=== PATIENT | male | born 1975 | race Caucasian/White ===

== ENCOUNTER 2020-06-19 19:54 | Observation (INO) ==
[2020-06-19 20:35] LABS: Basophils # 0.1 K/mcL (0.0-0.2); Basophils % 0.6 %; Eosinophils # 0.2 K/mcL (0.0-0.6); Eosinophils % 2.6 %; Hematocrit 42.5 % (37.5-50.1); Hemoglobin 13.6 g/dL (12.9-16.9); Immature Granulocytes % 0.5 % (0-4); Lymphocytes % 13.2 %; Mean Corpuscular Hemoglobin 29.6 pg (28.0-33.3); Mean Corpuscular Volume 92.4 fL (83.0-100.0); Monocytes # 0.7 K/mcL (0.0-1.3); Monocytes % 8.8 %; Neutrophils # 5.7 K/mcL (1.6-8.9); Platelet Count 235 K/mcL (140-400); Red Cell Distribution Width 12.8 % (11.5-14.5); Segmented Neutrophils % 74.3 %; White Blood Count 7.7 K/mcL (4.3-11.1)
[2020-06-19 20:41] LABS: Bilirubin,Urine Negative (Negative); Blood,Urine Negative (Negative); Clarity,Urine Clear (Clear); Color,Urine Colorless (Yellow); Glucose,Urine (UA) Normal (Normal); Ketones,Urine Negative (Negative); Leukocyte Esterase,Urine Negative (Negative); Nitrite,Urine Negative (Negative); PH,Urine 7.5 pH Units (5.0-8.0); Protein,Urine Negative (Neg-Trace); Specific Gravity,Urine 1.008 (1.010-1.025); Urobilinogen,Urine Normal (Normal)
[2020-06-19 21:00] LABS: BUN/Creatinine Ratio 12 (6-26); Blood Urea Nitrogen 9 mg/dL (6-20); Calcium 13.4 mg/dL (8.6-10.3); Carbon Dioxide 32 mEq/L (23-29); Chloride 101 mEq/L (98-107); Glucose 120 mg/dL (70-105); Osmolality,Calculated 282 (280-300); Potassium 3.9 mEq/L (3.5-5.1); Sodium 136 mEq/L (136-145); eGFR For African Americans > 60 (> 60); eGFR For Non-African Americans > 60 (> 60)
[2020-06-19] MEDS ORDERED: 0.9 % Sodium Chloride 1,000 ML IVC ONE ×2 (21:07→23:36)
[2020-06-19] MEDS ORDERED: Ketorolac 15 MG/ML VIAL IVP ONE (21:08)
[2020-06-19] MEDS ORDERED: Isovue-370 500 ML BOTTLE IVP ONE (21:35)
[2020-06-19 21:57] LABS: VBG Ionized Calcium 1.78 mmol/L (1.15-1.35)
[2020-06-19] MEDS ORDERED: Ondansetron 4 MG/2 ML VIAL IVP ONE (22:03)
[2020-06-19] MEDS ORDERED: Pantoprazole 40 MG VIAL IVP ONE (22:32)
[2020-06-20 00:16] LABS: Magnesium 1.7 mg/dL (1.6-2.6)
[2020-06-20] MEDS ORDERED: Acetaminophen 325 MG TABLET PO PRN (00:52)
[2020-06-20] MEDS ORDERED: Naloxone 0.4 MG/ML INJ IVP PRN (00:52)
[2020-06-20] MEDS: 0.9 % Sodium Chloride 1,000 ML IVC SCH ×3 (01:08→16:43)
[2020-06-20] MEDS: Ketorolac 30 MG/ML VIAL IVP PRN ×2 (02:15→08:16)
[2020-06-20] MEDS: *HR* Promethazine 25 MG/ML VIAL IVP PRN ×4 (02:17→21:42)
[2020-06-20 03:11] LABS: Basophils % 0.6 %; Eosinophils # 0.2 K/mcL (0.0-0.6); Eosinophils % 3.6 %; Immature Granulocytes % 0.5 % (0-4); Lymphocytes # 1.6 K/mcL (0.6-4.6); Lymphocytes % 23.9 %; Mean Corpuscular HGB Conc 31.7 g/dL (31.6-35.5); Mean Corpuscular Hemoglobin 29.1 pg (28.0-33.3); Mean Corpuscular Volume 91.9 fL (83.0-100.0); Mean Platelet Volume 9.4 fL (9.4-12.4); Monocytes # 0.8 K/mcL (0.0-1.3); Monocytes % 12.3 %; Neutrophils # 3.9 K/mcL (1.6-8.9); Platelet Count 226 K/mcL (140-400); Red Blood Count 4.46 M/mcL (4.19-5.50); Red Cell Distribution Width 12.7 % (11.5-14.5); Segmented Neutrophils % 59.1 %; White Blood Count 6.7 K/mcL (4.3-11.1)
[2020-06-20 03:18] LABS: INR 1.1; Prothrombin Time 12.4 Seconds (9.4-12.1)
[2020-06-20 03:54] LABS: Alanine Aminotransferase 24 Units/L (7-52); Albumin 3.3 g/dL (3.5-5.7); Albumin/Globulin Ratio 1.2 (1.1-2.2); Alkaline Phosphatase 70 Units/L (34-104); Aspartate Amino Transferase 20 Units/L (13-39); BUN/Creatinine Ratio 13 (6-26); Bilirubin,Total 0.2 mg/dL (0.3-1.0); Blood Urea Nitrogen 9 mg/dL (6-20); Calcium 12.4 mg/dL (8.6-10.3); Carbon Dioxide 27 mEq/L (23-29); Chloride 107 mEq/L (98-107); Chol/HDL Ratio 7.1 (0-4.9); Cholesterol 192 mg/dL (< 200); Globulin 2.7 g/dL (2.4-3.5); Glucose 98 mg/dL (70-105); HDL Cholesterol 27 mg/dL (40-59); LDL Cholesterol,Calculated 134 mg/dL (< 100); Magnesium 1.8 mg/dL (1.6-2.6); Osmolality,Calculated 285 (280-300); Phosphorous 2.7 mg/dL (2.7-4.5); Potassium 3.9 mEq/L (3.5-5.1); Sodium 138 mEq/L (136-145); Triglycerides 154 mg/dL (< 150); eGFR For African Americans > 60 (> 60); eGFR For Non-African Americans > 60 (> 60)
[2020-06-20] MEDS ORDERED: Ketorolac 30 MG/ML VIAL IVP SCH (06:00)
[2020-06-20] MEDS: Loratadine 10 MG TABLET PO SCH (08:14)
[2020-06-20] MEDS ORDERED: Ketorolac 30 MG/ML VIAL IVP PRN (10:32)
[2020-06-20] MEDS: methocarbamoL 750 MG TABLET PO SCH ×3 (11:21→20:50)
[2020-06-20] MEDS: *HR* HYDROcodone/Acet 5/325 mg TABLET PO PRN ×2 (11:26→20:54)
[2020-06-20 13:40] LABS: Bacteria,Urine Few per hpf (None-Few); Bilirubin,Urine Negative (Negative); Blood,Urine Negative (Negative); Clarity,Urine Clear (Clear); Color,Urine Light-Yellow (Yellow); Glucose,Urine (UA) Normal (Normal); Ketones,Urine Negative (Negative); Leukocyte Esterase,Urine Trace (Negative); Mucus,Urine Few per lpf (None-Few); Nitrite,Urine Negative (Negative); PH,Urine 6.5 pH Units (5.0-8.0); Protein,Urine Negative (Neg-Trace); RBC,Urine 0-3 per hpf (0-3); Specific Gravity,Urine 1.015 (1.010-1.025); Urobilinogen,Urine Normal (Normal)
[2020-06-21] MEDS: 0.9 % Sodium Chloride 1,000 ML IVC SCH ×2 (00:17→07:24)
[2020-06-21] MEDS ORDERED: Melatonin 3 MG TABLET PO ONE (00:52)
[2020-06-21 01:21] LABS: Hematocrit 35.5 % (37.5-50.1); Hemoglobin 11.2 g/dL (12.9-16.9); Mean Corpuscular HGB Conc 31.5 g/dL (31.6-35.5); Mean Corpuscular Volume 95.2 fL (83.0-100.0); Mean Platelet Volume 9.4 fL (9.4-12.4); Platelet Count 177 K/mcL (140-400); Red Blood Count 3.73 M/mcL (4.19-5.50); Red Cell Distribution Width 12.6 % (11.5-14.5); White Blood Count 4.3 K/mcL (4.3-11.1)
[2020-06-21 01:41] LABS: Alanine Aminotransferase 20 Units/L (7-52); Albumin 2.8 g/dL (3.5-5.7); Albumin/Globulin Ratio 1.2 (1.1-2.2); Alkaline Phosphatase 73 Units/L (34-104); Aspartate Amino Transferase 16 Units/L (13-39); BUN/Creatinine Ratio 12 (6-26); Bilirubin,Total 0.2 mg/dL (0.3-1.0); Blood Urea Nitrogen 9 mg/dL (6-20); Calcium 10.7 mg/dL (8.6-10.3); Carbon Dioxide 26 mEq/L (23-29); Chloride 110 mEq/L (98-107); Globulin 2.3 g/dL (2.4-3.5); Glucose 122 mg/dL (70-105); Osmolality,Calculated 290 (280-300); Potassium 3.8 mEq/L (3.5-5.1); Sodium 140 mEq/L (136-145); Total Protein 5.1 g/dL (6.4-8.9); eGFR For African Americans > 60 (> 60); eGFR For Non-African Americans > 60 (> 60)
[2020-06-21 06:50] VITALS: BP 101/61
[2020-06-21] MEDS: methocarbamoL 750 MG TABLET PO SCH (07:23)
[2020-06-21] MEDS: *HR* HYDROcodone/Acet 5/325 mg TABLET PO PRN (07:23)
[2020-06-21] MEDS: *HR* Promethazine 25 MG/ML VIAL IVP PRN (07:23)
[2020-06-21] MEDS: Loratadine 10 MG TABLET PO SCH (07:23)
[2020-06-21] MEDS ORDERED: Pamidronate 30 MG in 0.9 % Sodium Chloride 500 ML IVPB ONE (08:58)
[2020-06-24 20:32] LABS: Alpha 2 Globulin (PEP) 0.61 g/dL (0.48-1.05); Beta Globulin (PEP) 0.68 g/dL (0.48-1.10)
[2020-06-25 11:41] LABS: IFE Reflexed NOT DONE
== END 2020-06-21 13:36 | disposition home or self-care (01) ==
LOC: 2ANU 19:54 → EMEROOARM 19:54 → SUATTDRO 06-20 00:16 → 2ANU 06-20 00:50
PROVIDERS: ADMIT Student in an Organized Health Care Education/Training Program; ATTEND Internal Medicine

== ENCOUNTER 2020-07-02 15:41 | Inpatient (IN) ==
[2020-07-02] MEDS ORDERED: 0.9 % Sodium Chloride 1,000 ML IVC ONE (16:27)
[2020-07-02 16:40] LABS: Bilirubin,Urine Negative (Negative); Blood,Urine Negative (Negative); Clarity,Urine Clear (Clear); Color,Urine Colorless (Yellow); Glucose,Urine (UA) Normal (Normal); Ketones,Urine Negative (Negative); Leukocyte Esterase,Urine Negative (Negative); Nitrite,Urine Negative (Negative); Protein,Urine Negative (Neg-Trace); Specific Gravity,Urine 1.005 (1.010-1.025); Urobilinogen,Urine Normal (Normal)
[2020-07-02 16:49] LABS: Basophils # 0.1 K/mcL (0.0-0.2); Basophils % 0.8 %; Eosinophils # 0.2 K/mcL (0.0-0.6); Eosinophils % 2.6 %; Hemoglobin 14.7 g/dL (12.9-16.9); Immature Granulocytes % 0.5 % (0-4); Lymphocytes # 1.9 K/mcL (0.6-4.6); Lymphocytes % 23.9 %; Mean Corpuscular Hemoglobin 29.1 pg (28.0-33.3); Mean Corpuscular Volume 90.9 fL (83.0-100.0); Mean Platelet Volume 9.3 fL (9.4-12.4); Monocytes # 0.8 K/mcL (0.0-1.3); Monocytes % 10.3 %; Neutrophils # 4.8 K/mcL (1.6-8.9); Platelet Count 313 K/mcL (140-400); Red Blood Count 5.06 M/mcL (4.19-5.50); Red Cell Distribution Width 12.9 % (11.5-14.5); Segmented Neutrophils % 61.9 %; White Blood Count 7.8 K/mcL (4.3-11.1)
[2020-07-02 16:55] LABS: INR 1.1; Prothrombin Time 12.3 Seconds (9.4-12.1)
[2020-07-02] MEDS ORDERED: *HR* HYDROmorphone (PF) 1 MG/ML SYRINGE IVP ONE ×2 (17:19→22:22)
[2020-07-02] MEDS ORDERED: Ondansetron 4 MG/2 ML VIAL IVP ONE (17:20)
[2020-07-02 17:24] LABS: Alanine Aminotransferase 20 Units/L (7-52); Albumin 4.3 g/dL (3.5-5.7); Albumin/Globulin Ratio 1.2 (1.1-2.2); Alkaline Phosphatase 115 Units/L (34-104); Aspartate Amino Transferase 23 Units/L (13-39); BUN/Creatinine Ratio 15 (6-26); Bilirubin,Total 0.5 mg/dL (0.3-1.0); Blood Urea Nitrogen 11 mg/dL (6-20); Calcium 13.4 mg/dL (8.6-10.3); Carbon Dioxide 27 mEq/L (23-29); Chloride 103 mEq/L (98-107); Globulin 3.7 g/dL (2.4-3.5); Glucose 89 mg/dL (70-105); Osmolality,Calculated 277 (280-300); Potassium 4.3 mEq/L (3.5-5.1); Sodium 134 mEq/L (136-145); eGFR For African Americans > 60 (> 60); eGFR For Non-African Americans > 60 (> 60)
[2020-07-02] MEDS ORDERED: Naloxone 0.4 MG/ML INJ IVP PRN (18:14)
[2020-07-02] MEDS ORDERED: MOM Conc 10 ML UD.LIQ PO PRN (18:14)
[2020-07-02] MEDS: Pantoprazole 40 MG VIAL IVP SCH (18:52)
[2020-07-02] MEDS: 0.9 % Sodium Chloride 1,000 ML IVC SCH (18:52)
[2020-07-02] MEDS ORDERED: Ketorolac 15 MG/ML VIAL IVP ONE (20:57)
[2020-07-02 21:22] LABS: Hematocrit 45.4 % (37.5-50.1)
[2020-07-03] MEDS: 0.9 % Sodium Chloride 1,000 ML IVC SCH ×4 (02:56→23:37)
[2020-07-03] MEDS ORDERED: Ketorolac 15 MG/ML VIAL IVP ONE (04:57)
[2020-07-03 05:03] LABS: Basophils % 0.6 %; Eosinophils # 0.2 K/mcL (0.0-0.6); Eosinophils % 3.6 %; Hematocrit 40.4 % (37.5-50.1); Hemoglobin 12.7 g/dL (12.9-16.9); Immature Granulocytes % 0.5 % (0-4); Lymphocytes # 1.2 K/mcL (0.6-4.6); Lymphocytes % 18.3 %; Mean Corpuscular HGB Conc 31.4 g/dL (31.6-35.5); Mean Corpuscular Hemoglobin 29.1 pg (28.0-33.3); Mean Corpuscular Volume 92.7 fL (83.0-100.0); Monocytes # 0.7 K/mcL (0.0-1.3); Monocytes % 10.5 %; Neutrophils # 4.3 K/mcL (1.6-8.9); Platelet Count 203 K/mcL (140-400); Red Blood Count 4.36 M/mcL (4.19-5.50); Red Cell Distribution Width 12.8 % (11.5-14.5); Segmented Neutrophils % 66.5 %; White Blood Count 6.4 K/mcL (4.3-11.1)
[2020-07-03] MEDS: Pantoprazole 40 MG VIAL IVP SCH ×2 (05:10→17:48)
[2020-07-03 05:19] LABS: BUN/Creatinine Ratio 19 (6-26); Blood Urea Nitrogen 12 mg/dL (6-20); Calcium 10.7 mg/dL (8.6-10.3); Carbon Dioxide 24 mEq/L (23-29); Chloride 109 mEq/L (98-107); Glucose 87 mg/dL (70-105); Magnesium 1.7 mg/dL (1.6-2.6); Osmolality,Calculated 283 (280-300); Sodium 137 mEq/L (136-145); eGFR For African Americans > 60 (> 60); eGFR For Non-African Americans > 60 (> 60)
[2020-07-03] MEDS ORDERED: methocarbamoL 750 MG TABLET PO PRN ×2 (07:33→15:55)
[2020-07-03] MEDS ORDERED: polyethylene glycoL 3350 17 GM POWD.PACK PO SCH (09:00)
[2020-07-03] MEDS ORDERED: Lidocaine -MPF 2% 2 ML VIAL ONE (13:14)
[2020-07-03] MEDS ORDERED: *HR* Propofol 200 MG/20 ML VIAL IVP ONE (13:15)
[2020-07-03] MEDS ORDERED: *HR* FentaNYL (PF) 100 MCG/2 ML VIAL ONE (13:17)
[2020-07-03] MEDS ORDERED: Ondansetron 4 MG/2 ML VIAL ONE (13:18)
[2020-07-03] MEDS ORDERED: *HR* HYDROmorphone PF 0.5 MG/0.5 ML SYRINGE IVP PRN (14:13)
[2020-07-03] MEDS ORDERED: *HR* OxyCODONE Immed Rel 5 MG TABLET PO PRN (14:13)
[2020-07-03] MEDS ORDERED: Ondansetron 4 MG/2 ML VIAL IVP ONE (14:13)
[2020-07-03] MEDS ORDERED: Isovue-300 50ML VIAL ONE (14:26)
[2020-07-03] MEDS ORDERED: Dexamethasone 4 MG/ML VIAL ONE (14:39)
[2020-07-03] MEDS ORDERED: Ketorolac 30 MG/ML VIAL ONE (14:59)
[2020-07-03] MEDS ORDERED: MOM Conc 10 ML UD.LIQ PO PRN (15:55)
[2020-07-03] MEDS ORDERED: Naloxone 0.4 MG/ML INJ IVP PRN (15:55)
[2020-07-03] MEDS: Ketorolac 30 MG/ML VIAL IVP PRN ×2 (17:30→23:38)
[2020-07-03 17:54] LABS: Prolactin 12.03 ng/mL (3.00-14.70)
[2020-07-03] MEDS: rOPINIRole 1 MG TABLET PO SCH (19:41)
[2020-07-03] MEDS ORDERED: rOPINIRole 1 MG TABLET PO SCH (21:00)
[2020-07-04 04:30] LABS: Basophils % 0.3 %; Eosinophils % 0.6 %; Hematocrit 35.3 % (37.5-50.1); Hemoglobin 11.3 g/dL (12.9-16.9); Immature Granulocytes % 0.5 % (0-4); Lymphocytes # 0.9 K/mcL (0.6-4.6); Lymphocytes % 13.8 %; Mean Corpuscular Volume 93.6 fL (83.0-100.0); Mean Platelet Volume 9.3 fL (9.4-12.4); Monocytes # 0.7 K/mcL (0.0-1.3); Monocytes % 10.2 %; Platelet Count 198 K/mcL (140-400); Red Blood Count 3.77 M/mcL (4.19-5.50); Red Cell Distribution Width 12.4 % (11.5-14.5); Segmented Neutrophils % 74.6 %; White Blood Count 6.7 K/mcL (4.3-11.1)
[2020-07-04 04:47] LABS: BUN/Creatinine Ratio 16 (6-26); Blood Urea Nitrogen 12 mg/dL (6-20); Calcium 10.1 mg/dL (8.6-10.3); Carbon Dioxide 25 mEq/L (23-29); Chloride 110 mEq/L (98-107); Glucose 151 mg/dL (70-105); Osmolality,Calculated 289 (280-300); Sodium 138 mEq/L (136-145); eGFR For African Americans > 60 (> 60); eGFR For Non-African Americans > 60 (> 60)
[2020-07-04] MEDS: Ketorolac 30 MG/ML VIAL IVP PRN ×2 (05:43→11:59)
[2020-07-04] MEDS: Pantoprazole 40 MG VIAL IVP SCH ×2 (05:44→17:29)
[2020-07-04] MEDS: polyethylene glycoL 3350 17 GM POWD.PACK PO SCH (08:02)
[2020-07-04] MEDS: 0.9 % Sodium Chloride 1,000 ML IVC SCH ×2 (08:34→17:29)
[2020-07-04] MEDS: Sennosides/Docusate Sodium TABLET PO SCH ×2 (10:40→20:40)
[2020-07-04] MEDS: Acetaminophen 325 MG TABLET PO PRN ×2 (15:55→20:39)
[2020-07-04] MEDS: rOPINIRole 1 MG TABLET PO SCH (20:39)
[2020-07-04 22:44] LABS: Prothrombin Time 11.9 Seconds (9.4-12.1)
[2020-07-05] MEDS: 0.9 % Sodium Chloride 1,000 ML IVC SCH ×3 (02:04→20:31)
[2020-07-05 05:06] LABS: Basophils % 0.5 %; Eosinophils # 0.1 K/mcL (0.0-0.6); Eosinophils % 2.6 %; Hematocrit 36.5 % (37.5-50.1); Hemoglobin 11.9 g/dL (12.9-16.9); Immature Granulocytes % 0.2 % (0-4); Lymphocytes # 1.7 K/mcL (0.6-4.6); Lymphocytes % 31.1 %; Mean Corpuscular HGB Conc 32.6 g/dL (31.6-35.5); Mean Corpuscular Hemoglobin 30.7 pg (28.0-33.3); Mean Corpuscular Volume 94.1 fL (83.0-100.0); Mean Platelet Volume 10.1 fL (9.4-12.4); Monocytes # 0.6 K/mcL (0.0-1.3); Monocytes % 10.6 %; Platelet Count 180 K/mcL (140-400); Red Blood Count 3.88 M/mcL (4.19-5.50); Red Cell Distribution Width 12.7 % (11.5-14.5); White Blood Count 5.5 K/mcL (4.3-11.1)
[2020-07-05] MEDS: Pantoprazole 40 MG VIAL IVP SCH (05:11)
[2020-07-05 05:16] LABS: BUN/Creatinine Ratio 13 (6-26); Blood Urea Nitrogen 10 mg/dL (6-20); Calcium 11.1 mg/dL (8.6-10.3); Carbon Dioxide 30 mEq/L (23-29); Chloride 105 mEq/L (98-107); Glucose 105 mg/dL (70-105); Magnesium 1.5 mg/dL (1.6-2.6); Osmolality,Calculated 287 (280-300); Potassium 3.8 mEq/L (3.5-5.1); Sodium 139 mEq/L (136-145); eGFR For African Americans > 60 (> 60); eGFR For Non-African Americans > 60 (> 60)
[2020-07-05] MEDS: Sennosides/Docusate Sodium TABLET PO SCH ×2 (08:58→20:27)
[2020-07-05] MEDS: polyethylene glycoL 3350 17 GM POWD.PACK PO SCH (08:59)
[2020-07-05] MEDS: Acetaminophen 325 MG TABLET PO PRN (17:33)
[2020-07-05 20:18] LABS: Kappa Qnt Free Light Chains 30.92 mg/L (3.30-19.40); Lambda Qnt Free Light Chains 34.83 mg/L (5.71-26.30)
[2020-07-05] MEDS: rOPINIRole 1 MG TABLET PO SCH (20:27)
[2020-07-06] MEDS: Acetaminophen 325 MG TABLET PO PRN ×2 (00:06→17:40)
[2020-07-06 04:37] LABS: Basophils % 0.9 %; Eosinophils # 0.2 K/mcL (0.0-0.6); Eosinophils % 3.8 %; Hematocrit 37.9 % (37.5-50.1); Hemoglobin 12.1 g/dL (12.9-16.9); Immature Granulocytes % 0.7 % (0-4); Lymphocytes # 1.2 K/mcL (0.6-4.6); Lymphocytes % 28.5 %; Mean Corpuscular HGB Conc 31.9 g/dL (31.6-35.5); Mean Corpuscular Hemoglobin 29.3 pg (28.0-33.3); Mean Corpuscular Volume 91.8 fL (83.0-100.0); Mean Platelet Volume 9.7 fL (9.4-12.4); Monocytes # 0.5 K/mcL (0.0-1.3); Monocytes % 12.7 %; Neutrophils # 2.3 K/mcL (1.6-8.9); Platelet Count 202 K/mcL (140-400); Red Blood Count 4.13 M/mcL (4.19-5.50); Red Cell Distribution Width 12.7 % (11.5-14.5); Segmented Neutrophils % 53.4 %; White Blood Count 4.2 K/mcL (4.3-11.1)
[2020-07-06] MEDS: 0.9 % Sodium Chloride 1,000 ML IVC SCH ×3 (04:41→20:11)
[2020-07-06 04:52] LABS: BUN/Creatinine Ratio 15 (6-26); Blood Urea Nitrogen 12 mg/dL (6-20); Calcium 11.4 mg/dL (8.6-10.3); Carbon Dioxide 30 mEq/L (23-29); Chloride 103 mEq/L (98-107); Glucose 109 mg/dL (70-105); Osmolality,Calculated 286 (280-300); Potassium 3.7 mEq/L (3.5-5.1); Sodium 138 mEq/L (136-145); eGFR For African Americans > 60 (> 60); eGFR For Non-African Americans > 60 (> 60)
[2020-07-06] MEDS: polyethylene glycoL 3350 17 GM POWD.PACK PO SCH (08:48)
[2020-07-06] MEDS: Sennosides/Docusate Sodium TABLET PO SCH (08:48)
[2020-07-06] MEDS: rOPINIRole 1 MG TABLET PO SCH (20:59)
[2020-07-07] MEDS: 0.9 % Sodium Chloride 1,000 ML IVC SCH ×4 (03:34→21:00)
[2020-07-07] MEDS: Acetaminophen 325 MG TABLET PO PRN ×2 (04:48→10:55)
[2020-07-07] MEDS: polyethylene glycoL 3350 17 GM POWD.PACK PO SCH (08:53)
[2020-07-07 12:53] LABS: Basophils # 0.1 K/mcL (0.0-0.2); Basophils % 1.1 %; Eosinophils # 0.3 K/mcL (0.0-0.6); Eosinophils % 5.7 %; Hematocrit 38.8 % (37.5-50.1); Hemoglobin 12.6 g/dL (12.9-16.9); Immature Granulocytes % 1.4 % (0-4); Lymphocytes # 1.3 K/mcL (0.6-4.6); Lymphocytes % 29.4 %; Mean Corpuscular HGB Conc 32.5 g/dL (31.6-35.5); Mean Corpuscular Hemoglobin 30.5 pg (28.0-33.3); Mean Corpuscular Volume 93.9 fL (83.0-100.0); Mean Platelet Volume 9.9 fL (9.4-12.4); Monocytes # 0.5 K/mcL (0.0-1.3); Monocytes % 12.2 %; Neutrophils # 2.2 K/mcL (1.6-8.9); Platelet Count 204 K/mcL (140-400); Red Blood Count 4.13 M/mcL (4.19-5.50); Red Cell Distribution Width 12.7 % (11.5-14.5); Segmented Neutrophils % 50.2 %; White Blood Count 4.4 K/mcL (4.3-11.1)
[2020-07-07 13:03] LABS: BUN/Creatinine Ratio 13 (6-26); Blood Urea Nitrogen 10 mg/dL (6-20); Calcium 11.8 mg/dL (8.6-10.3); Carbon Dioxide 29 mEq/L (23-29); Chloride 105 mEq/L (98-107); Glucose 114 mg/dL (70-105); Magnesium 1.6 mg/dL (1.6-2.6); Osmolality,Calculated 286 (280-300); Potassium 3.5 mEq/L (3.5-5.1); Sodium 138 mEq/L (136-145); eGFR For African Americans > 60 (> 60); eGFR For Non-African Americans > 60 (> 60)
[2020-07-07 17:22] LABS: Metanephrine, Plasma 0.24 nmol/L (0.00-0.49)
[2020-07-07] MEDS: rOPINIRole 1 MG TABLET PO SCH (20:59)
[2020-07-08] MEDS: 0.9 % Sodium Chloride 1,000 ML IVC SCH (05:11)
[2020-07-08 06:58] VITALS: BP 102/64
[2020-07-08] MEDS: polyethylene glycoL 3350 17 GM POWD.PACK PO SCH (08:40)
[2020-07-08 10:13] LABS: Thyroid Stimulating Hormone 0.905 mcIU/mL (0.340-5.600)
[2020-07-08 10:14] LABS: Triiodothyronine (T3) Free 3.57 pg/mL (2.50-3.90)
== END 2020-07-08 11:15 | disposition home or self-care (01) | DRG 446 ==
LOC: EMEROOARM 15:41 → 3BNU 15:41 → SUATTDRO 17:59 → 3BNU 18:24 → 3ANU 07-06 18:36
PROVIDERS: ADMIT Internal Medicine; ATTEND Pharmacist

== ENCOUNTER 2020-07-30 10:07 | Observation (INO) ==
[2020-07-30] MEDS ORDERED: 0.9 % Sodium Chloride 1,000 ML IVC ONE (10:35)
[2020-07-30] MEDS ORDERED: Isovue-370 500 ML BOTTLE IVP ONE (10:36)
[2020-07-30] MEDS ORDERED: Ondansetron 4 MG/2 ML VIAL IVP ONE (10:36)
[2020-07-30] MEDS ORDERED: *HR* FentaNYL (PF) 100 MCG/2 ML VIAL IVP ONE (10:38)
[2020-07-30 10:39] LABS: Bilirubin,Urine Moderate (Negative); Blood,Urine Negative (Negative); Clarity,Urine Clear (Clear); Color,Urine Dark-Orange (Yellow); Glucose,Urine (UA) Normal (Normal); Hyaline Casts,Urine Few per lpf (None Seen); Ketones,Urine Negative (Negative); Leukocyte Esterase,Urine Large (Negative); Mucus,Urine Few per lpf (None-Few); Nitrite,Urine Positive (Negative); PH,Urine 6.5 pH Units (5.0-8.0); Protein,Urine 30 mg/dL (Neg-Trace); Specific Gravity,Urine 1.023 (1.010-1.025); Squamous Epithelial Cell,Urine Few per hpf (None-Few); WBC,Urine 15-30 per hpf (0-3)
[2020-07-30 11:04] LABS: Basophils # 0.1 K/mcL (0.0-0.2); Basophils % 0.9 %; Eosinophils # 0.3 K/mcL (0.0-0.6); Eosinophils % 4.1 %; Hemoglobin 13.6 g/dL (12.9-16.9); Immature Granulocytes % 0.6 % (0-4); Lymphocytes # 1.5 K/mcL (0.6-4.6); Lymphocytes % 22.4 %; Mean Corpuscular HGB Conc 30.9 g/dL (31.6-35.5); Mean Corpuscular Hemoglobin 29.1 pg (28.0-33.3); Mean Platelet Volume 9.6 fL (9.4-12.4); Monocytes # 0.7 K/mcL (0.0-1.3); Monocytes % 10.2 %; Neutrophils # 4.1 K/mcL (1.6-8.9); Platelet Count 265 K/mcL (140-400); Red Blood Count 4.68 M/mcL (4.19-5.50); Red Cell Distribution Width 13.3 % (11.5-14.5); Segmented Neutrophils % 61.8 %; White Blood Count 6.6 K/mcL (4.3-11.1)
[2020-07-30 11:10] LABS: BUN/Creatinine Ratio 13 (6-26); Blood Urea Nitrogen 11 mg/dL (6-20); Calcium 13.8 mg/dL (8.6-10.3); Carbon Dioxide 29 mEq/L (23-29); Chloride 104 mEq/L (98-107); Glucose 101 mg/dL (70-105); Magnesium 1.8 mg/dL (1.6-2.6); Osmolality,Calculated 282 (280-300); Phosphorous 2.4 mg/dL (2.7-4.5); Potassium 4.3 mEq/L (3.5-5.1); Sodium 136 mEq/L (136-145); eGFR For African Americans > 60 (> 60); eGFR For Non-African Americans > 60 (> 60)
[2020-07-30] MEDS ORDERED: levoFLOXacin 500 MG/100 ML 500 MG/100 ML BAG IVPB ONE (11:55)
[2020-07-30] MEDS ORDERED: Naloxone 0.4 MG/ML INJ IVP PRN (12:17)
[2020-07-30 13:25] LABS: Alanine Aminotransferase 16 Units/L (7-52); Albumin 4.3 g/dL (3.5-5.7); Albumin/Globulin Ratio 1.3 (1.1-2.2); Alkaline Phosphatase 96 Units/L (34-104); Aspartate Amino Transferase 21 Units/L (13-39); Bilirubin,Indirect 0.3 mg/dL (0.0-1.0); Bilirubin,Total 0.3 mg/dL (0.3-1.0); Globulin 3.3 g/dL (2.4-3.5); Total Protein 7.6 g/dL (6.4-8.9)
[2020-07-30] MEDS ORDERED: Famotidine 20 MG TABLET PO PRN (14:08)
[2020-07-30] MEDS: 0.9 % Sodium Chloride 1,000 ML IVC SCH ×2 (15:29→22:26)
[2020-07-30] MEDS: *HR* Heparin 5,000 UNIT/ML VIAL SQ SCH (18:56)
[2020-07-30] MEDS: Acetaminophen 325 MG TABLET PO PRN (19:04)
[2020-07-30] MEDS: methocarbamoL 750 MG TABLET PO PRN (19:05)
[2020-07-30] MEDS ORDERED: QUEtiapine Fumarate 25 MG TABLET PO SCH (21:00)
[2020-07-30] MEDS ORDERED: rOPINIRole 1 MG TABLET PO SCH (21:00)
[2020-07-30 22:24] LABS: BUN/Creatinine Ratio 7 (6-26); Blood Urea Nitrogen 8 mg/dL (6-20); Calcium 11.6 mg/dL (8.6-10.3); Carbon Dioxide 26 mEq/L (23-29); Chloride 109 mEq/L (98-107); Glucose 135 mg/dL (70-105); Osmolality,Calculated 286 (280-300); Potassium 3.7 mEq/L (3.5-5.1); Sodium 138 mEq/L (136-145); eGFR For African Americans > 60 (> 60); eGFR For Non-African Americans > 60 (> 60)
[2020-07-31] MEDS: Ondansetron 4 MG/2 ML VIAL IVP PRN ×2 (03:56→11:09)
[2020-07-31 04:46] LABS: BUN/Creatinine Ratio 9 (6-26); Blood Urea Nitrogen 8 mg/dL (6-20); Calcium 11.6 mg/dL (8.6-10.3); Carbon Dioxide 28 mEq/L (23-29); Chloride 110 mEq/L (98-107); Glucose 118 mg/dL (70-105); Magnesium 1.5 mg/dL (1.6-2.6); Osmolality,Calculated 289 (280-300); Phosphorous 2.7 mg/dL (2.7-4.5); Potassium 3.8 mEq/L (3.5-5.1); Sodium 140 mEq/L (136-145); eGFR For African Americans > 60 (> 60); eGFR For Non-African Americans > 60 (> 60)
[2020-07-31] MEDS: 0.9 % Sodium Chloride 1,000 ML IVC SCH ×3 (05:07→19:55)
[2020-07-31] MEDS: *HR* Heparin 5,000 UNIT/ML VIAL SQ SCH ×2 (05:11→18:07)
[2020-07-31] MEDS: Acetaminophen 325 MG TABLET PO PRN (05:11)
[2020-07-31] MEDS: methocarbamoL 750 MG TABLET PO PRN ×2 (05:11→20:01)
[2020-07-31] MEDS: Loratadine 10 MG TABLET PO SCH (08:16)
[2020-07-31] MEDS: cefTRIAXone 1,000 MG in Water for inj. (sterile) 10 ML IVP SCH (08:17)
[2020-07-31] MEDS: polyethylene glycoL 3350 17 GM POWD.PACK PO SCH (12:45)
[2020-07-31] MEDS ORDERED: *HR* Promethazine 25 MG/ML VIAL IVP PRN (13:17)
[2020-07-31] MEDS: Ibuprofen 400 MG TABLET PO PRN (16:38)
[2020-07-31] MEDS: rOPINIRole 1 MG TABLET PO SCH (20:00)
[2020-07-31] MEDS: QUEtiapine Fumarate 25 MG TABLET PO SCH (20:02)
[2020-08-01] MEDS: Ibuprofen 400 MG TABLET PO PRN ×3 (01:35→21:58)
[2020-08-01 05:30] LABS: BUN/Creatinine Ratio 11 (6-26); Blood Urea Nitrogen 7 mg/dL (6-20); Calcium 11.8 mg/dL (8.6-10.3); Carbon Dioxide 30 mEq/L (23-29); Chloride 103 mEq/L (98-107); Glucose 165 mg/dL (70-105); Magnesium 1.7 mg/dL (1.6-2.6); Osmolality,Calculated 286 (280-300); Potassium 3.5 mEq/L (3.5-5.1); Sodium 137 mEq/L (136-145); eGFR For African Americans > 60 (> 60); eGFR For Non-African Americans > 60 (> 60)
[2020-08-01] MEDS: *HR* Heparin 5,000 UNIT/ML VIAL SQ SCH ×2 (06:20→18:00)
[2020-08-01] MEDS: 0.9 % Sodium Chloride 1,000 ML IVC SCH ×2 (07:47→15:24)
[2020-08-01] MEDS: Loratadine 10 MG TABLET PO SCH (09:44)
[2020-08-01] MEDS: polyethylene glycoL 3350 17 GM POWD.PACK PO SCH (09:45)
[2020-08-01] MEDS: cefTRIAXone 1,000 MG in Water for inj. (sterile) 10 ML IVP SCH (09:45)
[2020-08-01] MEDS ORDERED: Fluticasone Propionate Nasal 50 MCG/SPRAY BOTTLE NS SCH (13:15)
[2020-08-01] MEDS ORDERED: Fluticasone Propionate Nasal 50 MCG/SPRAY BOTTLE NS PRN (16:19)
[2020-08-01] MEDS ORDERED: NON-FORMULARY MEDICATION 1 EACH EACH (Ropinirole Hcl [Requip] 4 MG) PO SCH (21:00)
[2020-08-01] MEDS ORDERED: NON-FORMULARY MEDICATION 1 EACH EACH (Omeprazole 20 MG) PO SCH (21:00)
[2020-08-01] MEDS ORDERED: AMITRIPTYLINE HCL 100 MG PO SCH (21:00)
[2020-08-01] MEDS ORDERED: QUETIAPINE FUMARATE 50 MG PO SCH (21:00)
[2020-08-01] MEDS: rOPINIRole 1 MG TABLET PO SCH (21:58)
[2020-08-01] MEDS: QUEtiapine Fumarate 25 MG TABLET PO SCH (21:59)
[2020-08-02] MEDS: 0.9 % Sodium Chloride 1,000 ML IVC SCH ×5 (00:24→15:41)
[2020-08-02 03:55] LABS: BUN/Creatinine Ratio 12 (6-26); Blood Urea Nitrogen 8 mg/dL (6-20); Calcium 11.6 mg/dL (8.6-10.3); Carbon Dioxide 31 mEq/L (23-29); Chloride 104 mEq/L (98-107); Glucose 104 mg/dL (70-105); Magnesium 1.7 mg/dL (1.6-2.6); Osmolality,Calculated 285 (280-300); Potassium 3.7 mEq/L (3.5-5.1); Sodium 138 mEq/L (136-145); eGFR For African Americans > 60 (> 60); eGFR For Non-African Americans > 60 (> 60)
[2020-08-02] MEDS: *HR* Heparin 5,000 UNIT/ML VIAL SQ SCH ×2 (05:38→17:34)
[2020-08-02] MEDS ORDERED: *HR* Midazolam HCl 2 MG/2 ML VIAL ONE (09:13)
[2020-08-02] MEDS ORDERED: *HR* FentaNYL (PF) 100 MCG/2 ML VIAL ONE (10:20)
[2020-08-02] MEDS ORDERED: Lidocaine -MPF 2% 2 ML VIAL ONE (10:20)
[2020-08-02] MEDS ORDERED: *HR* Succinylcholine 200 MG/10 ML VIAL IVP ONE (10:20)
[2020-08-02] MEDS ORDERED: *HR* Propofol 200 MG/20 ML VIAL IVP ONE (10:20)
[2020-08-02] MEDS ORDERED: Ondansetron 4 MG/2 ML VIAL ONE (10:20)
[2020-08-02] MEDS ORDERED: Dexamethasone 4 MG/ML VIAL ONE (10:20)
[2020-08-02] MEDS ORDERED: Lidocaine -MPF 4% 5 ML AMPUL ONE (10:20)
[2020-08-02] MEDS ORDERED: Lidocaine/EPI 1:100k 1% 20 ML VIAL ONE (10:21)
[2020-08-02] MEDS ORDERED: Dexmedetomidine HCl 400 MCG/100 ML MLS IVC ONE (10:38)
[2020-08-02] MEDS ORDERED: Heparin 1,000 UNITS/500 mL 500 ML ONE (10:40)
[2020-08-02] MEDS: cefTRIAXone 1,000 MG in Water for inj. (sterile) 10 ML IVP SCH (10:50)
[2020-08-02] MEDS ORDERED: *HR* Remifentanil 1 MG VIAL IVP ONE (11:11)
[2020-08-02] MEDS ORDERED: *HR* PHENYLEPHRINE 1,000 MCG/10 ML SYRINGE IVP ONE (11:19)
[2020-08-02] MEDS: polyethylene glycoL 3350 17 GM POWD.PACK PO SCH (13:34)
[2020-08-02] MEDS: Loratadine 10 MG TABLET PO SCH (13:34)
[2020-08-02] MEDS ORDERED: *HR* OxyCODONE Immed Rel 5 MG TABLET PO PRN (14:15)
[2020-08-02] MEDS ORDERED: Ondansetron 4 MG/2 ML VIAL IVP PRN ×2 (14:15→15:01)
[2020-08-02] MEDS ORDERED: *HR* Promethazine 25 MG/ML VIAL IVP PRN (14:15)
[2020-08-02] MEDS ORDERED: *HR* HYDROmorphone PF 0.5 MG/0.5 ML SYRINGE IVP PRN (14:15)
[2020-08-02] MEDS ORDERED: Ringers Solution, Lactated 1,000 ML ONE (14:39)
[2020-08-02] MEDS ORDERED: Acetaminophen 325 MG TABLET PO PRN (15:01)
[2020-08-02] MEDS ORDERED: methocarbamoL 750 MG TABLET PO PRN (15:01)
[2020-08-02] MEDS ORDERED: Fluticasone Propionate Nasal 50 MCG/SPRAY BOTTLE NS PRN (15:01)
[2020-08-02] MEDS ORDERED: Naloxone 0.4 MG/ML INJ IVP PRN (15:01)
[2020-08-02] MEDS: Ibuprofen 400 MG TABLET PO PRN (15:39)
[2020-08-02] MEDS ORDERED: QUEtiapine Fumarate 25 MG TABLET PO SCH (21:00)
[2020-08-02] MEDS ORDERED: rOPINIRole 1 MG TABLET PO SCH (21:00)
[2020-08-03 01:09] LABS: Albumin 3.2 g/dL (3.5-5.7); Calcium 10.6 mg/dL (8.6-10.3)
[2020-08-03] MEDS: Ibuprofen 400 MG TABLET PO PRN (03:11)
[2020-08-03] MEDS: 0.9 % Sodium Chloride 1,000 ML IVC SCH (04:09)
[2020-08-03] MEDS: *HR* Heparin 5,000 UNIT/ML VIAL SQ SCH (05:52)
[2020-08-03] MEDS ORDERED: cefTRIAXone 1,000 MG in Water for inj. (sterile) 10 ML IVP SCH (09:00)
[2020-08-03] MEDS ORDERED: polyethylene glycoL 3350 17 GM POWD.PACK PO SCH (09:00)
[2020-08-03] MEDS ORDERED: Loratadine 10 MG TABLET PO SCH (09:00)
[2020-08-03 10:27] VITALS: BP 117/76
== END 2020-08-03 14:02 | disposition home or self-care (01) ==
LOC: EMEROOARM 10:07 → 3ANU 10:07 → SUATTDRO 12:14 → 3ANU 13:10
PROVIDERS: ADMIT Internal Medicine; ATTEND Internal Medicine
PROC: [UNRECOGNIZED PROCEDURE] (2020-08-02 09:55)

== ENCOUNTER 2020-09-10 17:54 | Observation (INO) ==
[2020-09-10] MEDS ORDERED: Morphine Sulfate 2 MG/ML SYRINGE IVP ONE (18:22)
[2020-09-10] MEDS ORDERED: Ketorolac 15 MG/ML VIAL IVP ONE (18:22)
[2020-09-10] MEDS ORDERED: Ondansetron 4 MG/2 ML VIAL IVP ONE (18:22)
[2020-09-10 19:53] LABS: Basophils # 0.1 K/mcL (0.0-0.2); Basophils % 0.6 %; Eosinophils # 0.2 K/mcL (0.0-0.6); Eosinophils % 1.3 %; Hematocrit 41.6 % (37.5-50.1); Hemoglobin 13.3 g/dL (12.9-16.9); Immature Granulocytes % 0.8 % (0-4); Lymphocytes # 1.6 K/mcL (0.6-4.6); Lymphocytes % 11.9 %; Mean Corpuscular Hemoglobin 29.4 pg (28.0-33.3); Mean Corpuscular Volume 91.8 fL (83.0-100.0); Mean Platelet Volume 9.4 fL (9.4-12.4); Monocytes # 1.1 K/mcL (0.0-1.3); Monocytes % 7.9 %; Neutrophils # 10.6 K/mcL (1.6-8.9); Platelet Count 275 K/mcL (140-400); Red Blood Count 4.53 M/mcL (4.19-5.50); Red Cell Distribution Width 13.7 % (11.5-14.5); Segmented Neutrophils % 77.5 %
[2020-09-10 19:58] LABS: White Blood Count 13.7 K/mcL (4.3-11.1)
[2020-09-10 20:09] LABS: Alanine Aminotransferase 20 Units/L (7-52); Albumin 4.4 g/dL (3.5-5.7); Albumin/Globulin Ratio 1.4 (1.1-2.2); Alkaline Phosphatase 93 Units/L (34-104); Aspartate Amino Transferase 22 Units/L (13-39); BUN/Creatinine Ratio 14 (6-26); Bilirubin,Total 0.3 mg/dL (0.3-1.0); Blood Urea Nitrogen 13 mg/dL (6-20); Calcium 9.7 mg/dL (8.6-10.3); Carbon Dioxide 27 mEq/L (23-29); Chloride 102 mEq/L (98-107); Globulin 3.2 g/dL (2.4-3.5); Glucose 93 mg/dL (70-105); Osmolality,Calculated 286 (280-300); Potassium 3.8 mEq/L (3.5-5.1); Sodium 138 mEq/L (136-145); Total Protein 7.6 g/dL (6.4-8.9); eGFR For African Americans > 60 (> 60); eGFR For Non-African Americans > 60 (> 60)
[2020-09-10] MEDS ORDERED: Metoclopramide 10 MG/2 ML VIAL IVP ONE (20:31)
[2020-09-10 20:48] LABS: Bilirubin,Urine Negative (Negative); Blood,Urine Negative (Negative); Clarity,Urine Clear (Clear); Color,Urine Light-Yellow (Yellow); Glucose,Urine (UA) Normal (Normal); Ketones,Urine Negative (Negative); Leukocyte Esterase,Urine Negative (Negative); Nitrite,Urine Negative (Negative); Protein,Urine Negative (Neg-Trace); Urobilinogen,Urine Normal (Normal)
[2020-09-10] MEDS ORDERED: Doxycycline 100 MG CAPSULE PO ONE (21:38)
[2020-09-10 21:56] LABS: Troponin I < 0.03 ng/mL (< 0.04)
[2020-09-10 23:50] LABS: Acetaminophen < 10 mcg/mL (10-20); Ethanol < 10 mg/dL (Less than 10); Salicylate < 2.5 mg/dL (15.0-30.0)
[2020-09-10] MEDS ORDERED: Naloxone 0.4 MG/ML INJ IVP PRN (23:59)
[2020-09-10] MEDS ORDERED: Ondansetron 4 MG/2 ML VIAL IVP PRN (23:59)
[2020-09-11] MEDS: Nicotine 21 MG PATCH.TD24 TD SCH ×2 (00:43→09:19)
[2020-09-11] MEDS ORDERED: Acetaminophen 325 MG TABLET PO PRN (02:41)
[2020-09-11] MEDS ORDERED: Perflutren Lipid Microsphere 1.3 ML in 0.9 % Sodium Chloride 8.7 ML IVP PRN (03:22)
[2020-09-11 03:38] LABS: Amphetamine Screen,Urine Negative ng/mL (Cutoff=1000); Barbiturate Screen,Urine Negative ng/mL (Cutoff=200); Benzodiazepines Screen,Urine Negative ng/mL (Cutoff=200); Cannabinoid Screen,Urine Negative ng/mL (Cutoff = 50); Cocaine Screen,Urine Negative ng/mL (Cutoff= 300); Opiate Screen,Urine Positive ng/mL (Cutoff=300); Phencyclidine Screen,Urine Negative ng/mL (Cutoff=25)
[2020-09-11 04:33] LABS: Hematocrit 41.4 % (37.5-50.1); Mean Corpuscular HGB Conc 31.4 g/dL (31.6-35.5); Mean Corpuscular Hemoglobin 29.6 pg (28.0-33.3); Mean Corpuscular Volume 94.3 fL (83.0-100.0); Mean Platelet Volume 9.3 fL (9.4-12.4); Platelet Count 254 K/mcL (140-400); Red Blood Count 4.39 M/mcL (4.19-5.50); Red Cell Distribution Width 13.8 % (11.5-14.5); White Blood Count 7.7 K/mcL (4.3-11.1)
[2020-09-11 04:54] LABS: BUN/Creatinine Ratio 13 (6-26); Blood Urea Nitrogen 14 mg/dL (6-20); Calcium 9.3 mg/dL (8.6-10.3); Carbon Dioxide 29 mEq/L (23-29); Chloride 100 mEq/L (98-107); Glucose 102 mg/dL (70-105); Magnesium 1.9 mg/dL (1.6-2.6); Osmolality,Calculated 283 (280-300); Phosphorous 4.5 mg/dL (2.7-4.5); Potassium 3.3 mEq/L (3.5-5.1); Sodium 136 mEq/L (136-145); eGFR For African Americans > 60 (> 60); eGFR For Non-African Americans > 60 (> 60)
[2020-09-11 04:55] LABS: Troponin I < 0.03 ng/mL (< 0.04)
[2020-09-11] MEDS ORDERED: Ketorolac 15 MG/ML VIAL IVP ONE (06:33)
[2020-09-11] MEDS: Doxycycline 100 MG in 0.9 % Sodium Chloride Mini Bag 100 ML IVPB SCH ×2 (09:19→22:18)
[2020-09-11] MEDS: Loratadine 10 MG TABLET PO SCH (09:21)
[2020-09-11] MEDS: cefTRIAXone 1,000 MG in Water for inj. (sterile) 10 ML IVP SCH (09:21)
[2020-09-11] MEDS: Gabapentin 300 MG CAPSULE PO SCH ×3 (09:21→20:00)
[2020-09-11] MEDS: Fluticasone Propionate Nasal 50 MCG/SPRAY BOTTLE NS SCH (09:22)
[2020-09-11] MEDS ORDERED: QUEtiapine Fumarate 25 MG TABLET PO SCH ×2 (15:45→21:00)
[2020-09-11] MEDS ORDERED: QUEtiapine Fumarate 25 MG TABLET PO PRN (16:07)
[2020-09-11] MEDS ORDERED: rOPINIRole 1 MG, rOPINIRole 3 MG PO SCH (21:00)
[2020-09-11] MEDS ORDERED: NON-FORMULARY MEDICATION 1 EACH EACH (Ropinirole Hcl [Requip] 4 MG) PO SCH (21:00)
[2020-09-12 06:23] VITALS: BP 128/84
[2020-09-12] MEDS ORDERED: FLU Vac QV 20-21 (6Month+)/PF 0.5 ML SYRINGE IM ONE (08:30)
[2020-09-12] MEDS ORDERED: Potassium Chloride Elixir 20 MEQ/15 ML UDC PO SCH (08:30)
[2020-09-12] MEDS: cefTRIAXone 1,000 MG in Water for inj. (sterile) 10 ML IVP SCH (08:44)
[2020-09-12] MEDS: Nicotine 21 MG PATCH.TD24 TD SCH (08:44)
[2020-09-12] MEDS: Doxycycline 100 MG in 0.9 % Sodium Chloride Mini Bag 100 ML IVPB SCH (08:45)
[2020-09-12] MEDS: Gabapentin 300 MG CAPSULE PO SCH (08:45)
[2020-09-12] MEDS: Loratadine 10 MG TABLET PO SCH (08:45)
[2020-09-12] MEDS: Fluticasone Propionate Nasal 50 MCG/SPRAY BOTTLE NS SCH (08:46)
== END 2020-09-12 09:46 | disposition home or self-care (01) ==
LOC: EMEROOARM 17:54 → 3ANU 17:54 → SUATTDRO 22:47 → 3ANU 23:25
PROVIDERS: ADMIT Internal Medicine; ATTEND Internal Medicine

== ENCOUNTER 2020-11-30 11:00 | Observation (INO) ==
[2020-11-30] MEDS ORDERED: 0.9 % Sodium Chloride 1,000 ML IVC ONE (11:19)
[2020-11-30] MEDS ORDERED: Ketorolac 15 MG/ML VIAL IVP ONE (11:22)
[2020-11-30] MEDS ORDERED: Ondansetron 4 MG/2 ML VIAL IVP ONE (11:22)
[2020-11-30 11:57] LABS: Basophils # 0.1 K/mcL (0.0-0.2); Basophils % 1.1 %; Eosinophils # 0.2 K/mcL (0.0-0.6); Eosinophils % 3.5 %; Hematocrit 40.8 % (37.5-50.1); Hemoglobin 12.7 g/dL (12.9-16.9); Immature Granulocytes % 0.6 % (0-4); Lymphocytes # 1.3 K/mcL (0.6-4.6); Lymphocytes % 20.7 %; Mean Corpuscular HGB Conc 31.1 g/dL (31.6-35.5); Mean Corpuscular Hemoglobin 27.6 pg (28.0-33.3); Mean Corpuscular Volume 88.7 fL (83.0-100.0); Mean Platelet Volume 9.1 fL (9.4-12.4); Monocytes # 0.7 K/mcL (0.0-1.3); Monocytes % 11.6 %; Neutrophils # 3.9 K/mcL (1.6-8.9); Platelet Count 284 K/mcL (140-400); Red Cell Distribution Width 14.8 % (11.5-14.5); Segmented Neutrophils % 62.5 %; White Blood Count 6.2 K/mcL (4.3-11.1)
[2020-11-30 12:18] LABS: BUN/Creatinine Ratio 17 (6-26); Blood Urea Nitrogen 13 mg/dL (6-20); Carbon Dioxide 26 mEq/L (23-29); Chloride 108 mEq/L (98-107); Glucose 95 mg/dL (70-105); Osmolality,Calculated 290 (280-300); Potassium 4.6 mEq/L (3.5-5.1); Sodium 140 mEq/L (136-145); eGFR For African Americans > 60 (> 60); eGFR For Non-African Americans > 60 (> 60)
[2020-11-30 13:00] LABS: C-Reactive Protein 8 mg/L (Less than 10)
[2020-11-30] MEDS ORDERED: *HR* FentaNYL (PF) 100 MCG/2 ML VIAL IVP ONE (13:27)
[2020-11-30] MEDS ORDERED: Acetaminophen 325 MG TABLET PO PRN (14:09)
[2020-11-30] MEDS ORDERED: Ondansetron 4 MG/2 ML VIAL IVP PRN (14:09)
[2020-11-30] MEDS ORDERED: Naloxone 0.4 MG/ML INJ IVP PRN (14:09)
[2020-11-30] MEDS: *HR* HYDROcodone/Acet 5/325 mg TABLET PO PRN (17:37)
[2020-11-30] MEDS ORDERED: methocarbamoL 750 MG TABLET PO PRN (19:30)
[2020-11-30] MEDS ORDERED: QUEtiapine Fumarate 25 MG TABLET PO PRN (19:30)
[2020-11-30] MEDS: rOPINIRole 1 MG TABLET PO SCH (21:42)
[2020-11-30] MEDS: QUEtiapine Fumarate 100 MG TABLET PO SCH (21:42)
[2020-11-30] MEDS: Nicotine 21 MG PATCH.TD24 TD SCH (21:43)
[2020-11-30] MEDS: Gabapentin 300 MG CAPSULE PO SCH (21:43)
[2020-12-01 02:55] LABS: Hematocrit 37.2 % (37.5-50.1); Hemoglobin 11.3 g/dL (12.9-16.9); Mean Corpuscular HGB Conc 30.4 g/dL (31.6-35.5); Mean Corpuscular Hemoglobin 27.9 pg (28.0-33.3); Mean Corpuscular Volume 91.9 fL (83.0-100.0); Mean Platelet Volume 9.7 fL (9.4-12.4); Platelet Count 252 K/mcL (140-400); Red Blood Count 4.05 M/mcL (4.19-5.50); Red Cell Distribution Width 14.7 % (11.5-14.5); White Blood Count 4.9 K/mcL (4.3-11.1)
[2020-12-01 03:14] LABS: BUN/Creatinine Ratio 13 (6-26); Blood Urea Nitrogen 12 mg/dL (6-20); Calcium 9.5 mg/dL (8.6-10.3); Carbon Dioxide 26 mEq/L (23-29); Chloride 105 mEq/L (98-107); Glucose 94 mg/dL (70-105); Osmolality,Calculated 286 (280-300); Potassium 3.9 mEq/L (3.5-5.1); Sodium 138 mEq/L (136-145); eGFR For African Americans > 60 (> 60); eGFR For Non-African Americans > 60 (> 60)
[2020-12-01] MEDS: Multivit/Ca/Min/Fe/FA 1 TAB TABLET PO SCH (08:33)
[2020-12-01] MEDS: Loratadine 10 MG TABLET PO SCH (08:33)
[2020-12-01] MEDS: Nicotine 21 MG PATCH.TD24 TD SCH (08:33)
[2020-12-01] MEDS: Gabapentin 300 MG CAPSULE PO SCH ×3 (08:33→20:51)
[2020-12-01] MEDS ORDERED: Doxycycline 100 MG CAPSULE PO SCH (09:00)
[2020-12-01] MEDS: Lactobacillus 1 EACH CAP.SPRINK PO SCH (10:13)
[2020-12-01] MEDS: *HR* HYDROcodone/Acet 5/325 mg TABLET PO PRN ×2 (12:18→19:25)
[2020-12-01] MEDS: Fluticasone Propionate Nasal 50 MCG/SPRAY BOTTLE NS SCH (13:12)
[2020-12-01] MEDS: Doxycycline 100 MG in 0.9 % Sodium Chloride Mini Bag 100 ML IVPB SCH (17:21)
[2020-12-01] MEDS: QUEtiapine Fumarate 100 MG TABLET PO SCH (20:51)
[2020-12-01] MEDS: rOPINIRole 1 MG TABLET PO SCH (20:52)
[2020-12-02] MEDS: *HR* HYDROcodone/Acet 5/325 mg TABLET PO PRN ×2 (01:25→09:29)
[2020-12-02 05:47] LABS: Basophils # 0.1 K/mcL (0.0-0.2); Eosinophils # 0.2 K/mcL (0.0-0.6); Eosinophils % 2.8 %; Hematocrit 40.3 % (37.5-50.1); Hemoglobin 12.7 g/dL (12.9-16.9); Immature Granulocytes % 0.9 % (0-4); Lymphocytes # 1.2 K/mcL (0.6-4.6); Lymphocytes % 16.6 %; Mean Corpuscular HGB Conc 31.5 g/dL (31.6-35.5); Mean Corpuscular Hemoglobin 27.4 pg (28.0-33.3); Mean Corpuscular Volume 86.9 fL (83.0-100.0); Mean Platelet Volume 9.3 fL (9.4-12.4); Monocytes # 0.7 K/mcL (0.0-1.3); Monocytes % 9.9 %; Neutrophils # 4.8 K/mcL (1.6-8.9); Platelet Count 262 K/mcL (140-400); Red Blood Count 4.64 M/mcL (4.19-5.50); Red Cell Distribution Width 14.8 % (11.5-14.5); Segmented Neutrophils % 68.8 %
[2020-12-02 06:09] LABS: BUN/Creatinine Ratio 17 (6-26); Blood Urea Nitrogen 15 mg/dL (6-20); Calcium 10.1 mg/dL (8.6-10.3); Carbon Dioxide 27 mEq/L (23-29); Chloride 102 mEq/L (98-107); Glucose 116 mg/dL (70-105); Magnesium 1.5 mg/dL (1.6-2.6); Osmolality,Calculated 286 (280-300); Potassium 3.9 mEq/L (3.5-5.1); Sodium 137 mEq/L (136-145); eGFR For African Americans > 60 (> 60); eGFR For Non-African Americans > 60 (> 60)
[2020-12-02] MEDS: Doxycycline 100 MG in 0.9 % Sodium Chloride Mini Bag 100 ML IVPB SCH (06:26)
[2020-12-02] MEDS ORDERED: *HR* Enoxaparin 40 MG/0.4 ML SYRINGE SQ SCH (07:00)
[2020-12-02 07:09] VITALS: BP 125/81
[2020-12-02] MEDS: Lactobacillus 1 EACH CAP.SPRINK PO SCH (09:24)
[2020-12-02] MEDS: Multivit/Ca/Min/Fe/FA 1 TAB TABLET PO SCH (09:24)
[2020-12-02] MEDS: Gabapentin 300 MG CAPSULE PO SCH (09:24)
[2020-12-02] MEDS: Loratadine 10 MG TABLET PO SCH (09:24)
[2020-12-02] MEDS: Nicotine 21 MG PATCH.TD24 TD SCH (09:24)
[2020-12-02] MEDS: Fluticasone Propionate Nasal 50 MCG/SPRAY BOTTLE NS SCH (09:25)
== END 2020-12-02 11:34 | disposition home or self-care (01) ==
LOC: EMEROOARM 11:00 → 3ANU 11:00 → SUATTDRO 14:39 → 3ANU 16:58
PROVIDERS: ADMIT Internal Medicine; ATTEND Pharmacist

== ENCOUNTER 2020-12-25 19:26 | Observation (INO) ==
[2020-12-25] MEDS ORDERED: 0.9 % Sodium Chloride 1,000 ML IVC ONE ×2 (20:04→21:27)
[2020-12-25] MEDS ORDERED: Ondansetron 4 MG/2 ML VIAL IVP ONE (20:27)
[2020-12-25] MEDS ORDERED: Azithromycin 500 MG in 0.9 % Sodium Chloride 250 ML IVPB ONE (20:37)
[2020-12-25] MEDS ORDERED: Ketorolac 15 MG/ML VIAL IVP ONE (20:40)
[2020-12-25 20:44] LABS: Basophils # 0.1 K/mcL (0.0-0.2); Eosinophils # 0.2 K/mcL (0.0-0.6); Hematocrit 35.6 % (37.5-50.1); Hemoglobin 11.2 g/dL (12.9-16.9); Immature Granulocytes % 0.9 % (0-4); Lymphocytes # 1.7 K/mcL (0.6-4.6); Mean Corpuscular HGB Conc 31.5 g/dL (31.6-35.5); Mean Corpuscular Hemoglobin 27.5 pg (28.0-33.3); Mean Corpuscular Volume 87.3 fL (83.0-100.0); Mean Platelet Volume 9.4 fL (9.4-12.4); Monocytes # 0.9 K/mcL (0.0-1.3); Monocytes % 12.1 %; Neutrophils # 4.7 K/mcL (1.6-8.9); Platelet Count 254 K/mcL (140-400); Red Blood Count 4.08 M/mcL (4.19-5.50); Red Cell Distribution Width 14.9 % (11.5-14.5); White Blood Count 7.7 K/mcL (4.3-11.1)
[2020-12-25 21:05] LABS: BUN/Creatinine Ratio 10 (6-26); Blood Urea Nitrogen 9 mg/dL (6-20); Carbon Dioxide 26 mEq/L (23-29); Chloride 104 mEq/L (98-107); Glucose 88 mg/dL (70-105); Osmolality,Calculated 282 (280-300); Potassium 3.9 mEq/L (3.5-5.1); Sodium 137 mEq/L (136-145); Troponin I < 0.03 ng/mL (< 0.04); eGFR For African Americans > 60 (> 60); eGFR For Non-African Americans > 60 (> 60)
[2020-12-25] MEDS ORDERED: *HR* Promethazine 25 MG/ML VIAL IM PRN (23:04)
[2020-12-25] MEDS ORDERED: Naloxone 0.4 MG/ML INJ IVP PRN (23:04)
[2020-12-25] MEDS ORDERED: Ondansetron 4 MG/2 ML VIAL IVP PRN (23:04)
[2020-12-25] MEDS ORDERED: Acetaminophen 325 MG TABLET PO PRN (23:04)
[2020-12-25 23:05] LABS: Amphetamine Screen,Urine Negative ng/mL (Cutoff=1000); Barbiturate Screen,Urine Negative ng/mL (Cutoff=200); Benzodiazepines Screen,Urine Negative ng/mL (Cutoff=200); Cannabinoid Screen,Urine Negative ng/mL (Cutoff = 50); Cocaine Screen,Urine Negative ng/mL (Cutoff= 300); Opiate Screen,Urine Negative ng/mL (Cutoff=300); Phencyclidine Screen,Urine Negative ng/mL (Cutoff=25)
[2020-12-25] MEDS ORDERED: Ipratropium/Albuterol Neb 3 ML IH PRN (23:09)
[2020-12-26 00:09] LABS: Adenovirus Not Detected (Not Detect); Bordetella Pertussis Not Detected (Not Detect); Chlamydophila pneumoniae Not Detected (Not Detect); Coronavirus 229E Not Detected (Not Detect); Coronavirus HKU1 Not Detected (Not Detect); Coronavirus NL63 Not Detected (Not Detect); Coronavirus OC43 Not Detected (Not Detect); Human Metapneumovirus Not Detected (Not Detect); Human Rhinovirus/Enterovirus DETECTED (Not Detect); Influenza A Subtype 2009 H1 Not Detected (Not Detect); Influenza B Not Detected (Not Detect); Mycoplasma pneumoniae Not Detected (Not Detect); Parainfluenza Virus 1 Not Detected (Not Detect); Parainfluenza Virus 2 Not Detected (Not Detect); Parainfluenza Virus 3 Not Detected (Not Detect); Parainfluenza Virus 4 Not Detected (Not Detect); Respiratory Syncytial Virus Not Detected (Not Detect); SARS-CoV-2 Not Detected (Not Detect)
[2020-12-26] MEDS: Ipratropium/Albuterol Neb 3 ML IH SCH ×7 (00:16→23:20)
[2020-12-26] MEDS ORDERED: MethylPREDNISolone 40 MG/ML VIAL IVP ONE (00:54)
[2020-12-26] MEDS: Ringers Solution, Lactated 1,000 ML IVC SCH ×2 (00:54→09:24)
[2020-12-26] MEDS: cefTRIAXone 1,000 MG in Water for inj. (sterile) 10 ML IVP SCH (00:55)
[2020-12-26] MEDS: Azithromycin 500 MG in 0.9 % Sodium Chloride 250 ML IVPB SCH (00:55)
[2020-12-26 01:33] LABS: Basophils # 0.1 K/mcL (0.0-0.2); Eosinophils # 0.2 K/mcL (0.0-0.6); Hematocrit 34.6 % (37.5-50.1); Hemoglobin 10.7 g/dL (12.9-16.9); INR 1.1; Lymphocytes # 1.4 K/mcL (0.6-4.6); Mean Corpuscular HGB Conc 30.9 g/dL (31.6-35.5); Mean Corpuscular Hemoglobin 27.5 pg (28.0-33.3); Mean Corpuscular Volume 88.9 fL (83.0-100.0); Mean Platelet Volume 9.6 fL (9.4-12.4); Monocytes # 0.6 K/mcL (0.0-1.3); Monocytes % 10.2 %; Neutrophils # 3.9 K/mcL (1.6-8.9); Platelet Count 234 K/mcL (140-400); Prothrombin Time 12.7 Seconds (9.4-12.1); Red Blood Count 3.89 M/mcL (4.19-5.50); Segmented Neutrophils % 61.8 %; White Blood Count 6.3 K/mcL (4.3-11.1)
[2020-12-26 01:42] LABS: Alanine Aminotransferase 15 Units/L (7-52); Albumin 3.1 g/dL (3.5-5.7); Albumin/Globulin Ratio 1.2 (1.1-2.2); Alkaline Phosphatase 60 Units/L (34-104); Aspartate Amino Transferase 16 Units/L (13-39); BUN/Creatinine Ratio 11 (6-26); Bilirubin,Total 0.3 mg/dL (0.3-1.0); Blood Urea Nitrogen 9 mg/dL (6-20); Carbon Dioxide 23 mEq/L (23-29); Chloride 110 mEq/L (98-107); Globulin 2.6 g/dL (2.4-3.5); Glucose 85 mg/dL (70-105); Magnesium 1.6 mg/dL (1.6-2.6); Osmolality,Calculated 286 (280-300); Potassium 4.7 mEq/L (3.5-5.1); Sodium 139 mEq/L (136-145); Total Protein 5.7 g/dL (6.4-8.9); eGFR For African Americans > 60 (> 60); eGFR For Non-African Americans > 60 (> 60)
[2020-12-26] MEDS: QUEtiapine Fumarate 100 MG TABLET PO SCH ×2 (02:49→20:00)
[2020-12-26] MEDS: rOPINIRole 1 MG TABLET PO SCH ×2 (02:50→20:00)
[2020-12-26] MEDS: *HR* HYDROcodone/Acet 5/325 mg TABLET PO PRN ×3 (02:50→16:05)
[2020-12-26] MEDS ORDERED: Fluticasone Propionate Nasal 50 MCG/SPRAY BOTTLE NS SCH (09:00)
[2020-12-26] MEDS: predniSONE 20 MG TABLET PO SCH (09:25)
[2020-12-26] MEDS: Nicotine 21 MG PATCH.TD24 TD SCH (09:26)
[2020-12-26] MEDS: Gabapentin 300 MG CAPSULE PO SCH ×3 (09:27→20:01)
[2020-12-26] MEDS: Loratadine 10 MG TABLET PO SCH (09:27)
[2020-12-26] MEDS: Fluticasone Propionate Nasal 50 MCG/SPRAY BOTTLE NS SCH (13:04)
[2020-12-26] MEDS ORDERED: Ketorolac 30 MG/ML VIAL IVP ONE (13:17)
[2020-12-26] MEDS: 0.9 % Sodium Chloride 1,000 ML IVC SCH (17:47)
[2020-12-26] MEDS ORDERED: QUEtiapine Fumarate 100 MG TABLET PO SCH (21:00)
[2020-12-26] MEDS ORDERED: rOPINIRole 1 MG TABLET PO SCH (21:00)
[2020-12-27] MEDS: Fluticasone Propionate Nasal 50 MCG/SPRAY BOTTLE NS SCH ×2 (01:17→10:29)
[2020-12-27] MEDS: cefTRIAXone 1,000 MG in Water for inj. (sterile) 10 ML IVP SCH (01:28)
[2020-12-27] MEDS: Azithromycin 500 MG in 0.9 % Sodium Chloride 250 ML IVPB SCH (01:29)
[2020-12-27] MEDS: *HR* HYDROcodone/Acet 5/325 mg TABLET PO PRN (03:35)
[2020-12-27 03:49] LABS: Hematocrit 32.6 % (37.5-50.1); Hemoglobin 10.1 g/dL (12.9-16.9); Mean Corpuscular Hemoglobin 27.2 pg (28.0-33.3); Mean Corpuscular Volume 87.9 fL (83.0-100.0); Mean Platelet Volume 9.4 fL (9.4-12.4); Platelet Count 231 K/mcL (140-400); Red Blood Count 3.71 M/mcL (4.19-5.50); Red Cell Distribution Width 14.8 % (11.5-14.5)
[2020-12-27] MEDS: Ipratropium/Albuterol Neb 3 ML IH SCH ×3 (04:03→11:26)
[2020-12-27 07:03] VITALS: BP 113/80
[2020-12-27] MEDS: 0.9 % Sodium Chloride 1,000 ML IVC SCH (07:38)
[2020-12-27] MEDS: Nicotine 21 MG PATCH.TD24 TD SCH (10:18)
[2020-12-27] MEDS: Gabapentin 300 MG CAPSULE PO SCH (10:18)
[2020-12-27] MEDS: Loratadine 10 MG TABLET PO SCH (10:19)
[2020-12-27] MEDS: predniSONE 20 MG TABLET PO SCH (10:26)
== END 2020-12-27 12:15 | disposition home or self-care (01) ==
LOC: 3ANU 19:26 → EMEROOARM 19:26 → SUATTDRO 22:16 → 3ANU 12-26 00:21
PROVIDERS: ADMIT Internal Medicine; ATTEND Internal Medicine